=== PATIENT | male | born 1990 | race Caucasian/White ===

== ENCOUNTER 2017-01-29 18:51 | Emergency (ER) | payer BC ==
[~2017-01-29] VITALS: Ht 190.5 cm; Wt 110.8 kg
[2017-01-29 19:00] VITALS: BP 142/83; TEMP 36.5; Ht 190.5 cm; Wt 110.8 kg
--- NOTE | 2017-01-29 19:09 | EMERGENCY ROOM VISIT NOTE ---
ED Visit Note First contact with patient: 19:06 CHIEF COMPLAINT: Leg injury HISTORY OF PRESENT ILLNESS: This 26-year-old male patient presents to the emergency department after injuring his right leg one hour ago. Patient states he was putting in fence posts, he was hammering in a post and missed the post, hitting himself in the new. He is still able to walk on the leg but weight bearing is painful. The hammer broke the skin on his leg, with abrasions, no deep laceration. His tetanus is up-to-date. He reports the pain radiates up and down the leg below the knee down to his ankle. No pain with bending or straightening the knee, no pain in his foot or ankle with movement. He denies any other injuries. REVIEW OF SYSTEMS: A complete 6 point review of systems was reviewed with the patient with pertinent positives and negatives as per history of present illness. All else were negative. PMH: No significant prior leg injury. Healthy with no chronic diseases or history of major trauma or surgery. SOCIAL HISTORY: Patient lives at home. PHYSICAL EXAM: Vital Signs: Reviewed Nurse's notes. Mildly tachycardic on arrival, suspect related to pain. I reassessed the HR manually and is 90bpm on my recheck. MENTAL STATUS: Alert, oriented, and cooperative. The knee and ankle are normal to inspection and there is no swelling or tenderness of either. There is swelling and tenderness on the anterior aspect of the leg midway between the knee and ankle. There is contused tissue overlying abrasions , no active bleeding, moderate swelling and very tender to palpation. There is no obvious deformity or fracture crepitus. Distal pulses intact, 2+, brisk cap refill, normal sensation and motor function distally. EMERGENCY DEPARTMENT COURSE: I examined the patient. X-ray of the tibia/fibula shows soft tissue swelling, no acute fractures. The patient's leg was wrapped in STACEY bandage under my direction, with good positioning and neurovascularly intact post-application. Patient was provided with crutches and educated on their use. Patient has a PCP appointment this week on , encouraged him to keep this and have his leg reassessed at that time. I also encouraged him to follow up with orthopedics if he is not improved in the next week. Patient was discharged home in stable condition.. Current/Historical Medications Scheduled Omeprazole (Prilosec), 20 MG PO DAILY Scheduled PRN Loratadine (Claritin), 10 MG PO DAILY PRN for ALLERGIC REACTION Allergies Uncoded Allergies: N (Allergy, Unknown, 09/06/02) NKDA (Allergy, Unknown, 09/06/02) Vital Signs Date Time Temp Pulse Resp B/P (MAP) Pulse Ox O2 Delivery O2 Flow Rate FiO2 01/29/17 19:52 103 16 95 01/29/17 19:00 36.5 111 20 142/83 97 Room Air Medications Administered Medications (Trade) Dose Ordered Sig/Chao Route Start Time Stop Time Status Last Admin Dose Admin Acetaminophen (Tylenol Tab) 1,000 mg NOW STAT PO 01/29/17 19:11 01/29/17 19:13 DC 01/29/17 19:11 1,000 MG Departure Information Impression Primary Impression: Contusion of right lower leg, initial encounter Dispostion Home / Self-Care Condition GOOD Referrals No Doctor, Assigned (PCP) [facility] Patient Instructions ED Contusion Lower Ext, [facility] Additional Instructions Tylenol 1000 mg every 8 hours or ibuprofen 600 mg every 6-8 hours as needed for pain. Ice and elevation to the leg for the next 48 hours. Wear the STACEY wrap on your leg for comfort. Use the crutches to stay off the leg as much as possible and see your physician in 4 or 5 days if you are not improving. Please return to the ER for severe worsening pain, if the leg becomes very swollen with tight skin, right becomes pale or discolored or very cold to touch , if the leg becomes numb, or for any signs of infection, including redness, increased swelling, streaking up the leg, pus drainage, or fever/chills. Work Instructions Return To Work: 3 days
[2017-01-29] MEDS ORDERED: ACETAMINOPHEN 500 MG TAB PO STA (19:11)
[2017-01-29] MEDS ORDERED: CLR10 PO (19:39)
[2017-01-29] MEDS ORDERED: PRLSR20 PO (19:39)
--- NOTE | 2017-01-29 19:40 | DIAGNOSTIC IMAGING REPORT ---
RIGHT TIBIA/FIBULA 2 VIEWS ROUTINE CLINICAL HISTORY: Right lower leg pain status post trauma COMPARISON: None. DISCUSSION: No acute fractures or dislocations are visualized. IMPRESSION: No acute fractures or dislocations identified. Electronically signed by: Barrington Leung M.D. 01/29/2017 7:39 PM Dictated Date/Time: 01/29/2017 7:38 PM
[2017-01-29 19:52] VITALS: PULSE 103; O2SAT 95
== END 2017-01-29 19:53 | disposition home or self-care (01) ==
LOC: C.EDB 18:53 → C.EDD 19:53
DX: S80.11XA Contusion of right lower leg, initial encounter (principal); W27.8XXA Contact with other nonpowered hand tool, initial encounter